=== PATIENT | female | born 1965 | race Caucasian/White ===

== ENCOUNTER → 2019-11-27 11:22 | Outpatient (CLI) | payer OTHER, SELFPAY ==
[2019-11-27 12:12] LABS: Eosinophils % 0.8 % (0.1-12.0); Hematocrit 40.5 % (37.0-47.0); Hemoglobin 13.1 g/dL (12.2-16.2); Lymphocytes # 1.2 K/mm3 (0.7-4.5); Lymphocytes % 27.4 % (10-50); Mean Corpuscular HGB Conc 32.3 g/dL (31.8-35.4); Mean Corpuscular Hemoglobin 30.4 pg (27.0-31.2); Mean Corpuscular Volume 94.2 fl (81-99); Mean Platelet Volume 7.6 fl (7.4-10.4); Monocytes # 0.2 K/mm3 (0.1-1.0); Monocytes % 4.3 % (1.7-9.3); Neutrophils % 66.5 % (37.0-80.0); Platelet Count 323 K/mm3 (142-424); Red Cell Distribution Width 13.1 % (11.5-17.5); White Blood Count 4.5 K/mm3 (4.8-10.8)
[2019-11-27 13:02] LABS: Hemoglobin A1C 5.5 % (0.0-7.0)
[2019-11-27 14:24] LABS: Alanine Aminotransferase 16 U/L (12-78); Albumin Level 3.7 gm/dL (3.4-5.0); Albumin/Globulin Ratio 1.4 (1.1-1.8); Alkaline Phosphatase 70 U/L (46-116); Anion Gap 12.5 mEq/L (5-15); Aspartate Amino Transferase 16 U/L (15-37); Bilirubin,Total 0.3 mg/dL (0.2-1.0); Blood Urea Nitrogen 18 mg/dL (7-18); Calcium 8.9 mg/dL (8.5-10.1); Carbon Dioxide 29 mmol/L (21.0-32.0); Chloride 110 mmol/L (98-107); Chol/HDL Ratio 3.2 (1-3.5); Cholesterol 221 mg/dL (140-200); Creatinine,Serum 0.74 mg/dL (0.55-1.02); Estimated Glomerular Filt Rate 82 ml/min (>60); GFR (African American) 99 ML/MIN (>60); Globulin 2.6 gm/dl (1.3-3.2); Glucose 101 mg/dL (74-106); HDL Cholesterol 70 mg/dL (29-89); LDL Cholesterol 146 mg/dL (0-130); Potassium 4.5 mmoL/L (3.5-5.1); Sodium 147 mmol/L (136-145); Thyroid Stimulating Hormone 1.01 uIU/ml (0.358-3.740); Total Protein,Serum 6.3 gm/dL (6.4-8.2); Triglycerides 23 mg/dL (30-200); VLDL Cholesterol 5 mg/dL (0-40)
[2019-11-29 16:58] LABS: FSH 133.9 mIU/mL (.); Vitamin B12 1036 pg/mL (232-1245)
[2019-11-29 17:00] LABS: Insulin Level Total 6.4 uIU/mL (2.6-24.9); Vitamin D 25 Hydroxy 70.8 ng/mL (30.0-100.0)
== END ==
PROVIDERS: Visit Provider Obstetrics & Gynecology Gynecology
DX: Z00.00 Encounter for general adult medical examination without abnormal findings (principal); R53.82 Chronic fatigue, unspecified
CPT/HCPCS: 36415; 80053; 80061; 82607; 82652; 83001; 83036; 83525; 84443; 85025

== ENCOUNTER 2025-09-19 10:53 | Day surgery (SDC) | payer OTHER, SELFPAY ==
--- NOTE | 2025-09-13 16:40 | EXP.HP ---
History of Present Illness *Admission Date: 09/19/25 *History of present illness: is a 59-year-old female who is here for screening colonoscopy. The patient reports a family history of colon cancer. The examination is deemed medically necessary for screening colonoscopy. The patient has been seen, interviewed and examined prior to the procedure by both myself and the anesthesia provider. [facility] Disclaimer: The information contained in this section may have been updated after the patient was seen, as this information can be updated by other users. Medical History Hormone replacement therapy ADHD Anxiety and depression Surgical History History of partial hysterectomy Family History Other Family history of cancer Social History (Updated 09/19/25 @ 12:03 by Lauren Park CRNA) Smoking Status: Never smoker alcohol intake: never substance use type: unknown current occupational status: employed Travel in the last 8 weeks?: None caffeine: Yes Have you lived/traveled outside [place] in past 30 days?: No Contact w/someone who lives/traveled outside [place] past 30 days?: No Exposure to someone with infectious disease in past 14 days?: No Do you have a fever (greater than 100.4 F or 38 C)?: No Have you tested positive for COVID-19?: No Exposed to someone with COVID-19 in past 14 days?: No Do you have a sore throat?: No Do you have a cough?: No Do you have any weakness?: No Do you have any diarrhea?: No Are you experiencing any unusual bleeding?: No Do you have any muscle aches/pain?: No Do you have any abdominal pain?: No Are you experiencing loss of taste or smell?: No Other Medical History Have you received the Pneumonia Vaccine: No Review of Systems Review of Systems Review of systems (narrative): Negative *Cardiovascular Comments: Negative *Gastrointestinal Comments: Negative *Genitourinary Comments: Negative *Musculoskeletal Comments: Negative *Neurologic Comments: Negative Meds Home Medications and Allergies Home Medications ?Medication ?Instructions ?Recorded ?Confirmed ?Type bupropion HCl 150 mg tablet,12 hr 150 mg PO DAILY 10/10/19 09/19/25 History sustained-release (Wellbutrin SR) clonazepam 0.5 mg tablet 0.5 mg PO DAILY PRN Anxiety 04/25/24 09/19/25 History dextroamphetamine-amphetamine 20 20 mg PO NEEDED PRN ADHD 04/25/24 09/19/25 History mg tablet estradiol 0.5 mg tablet 0.5 mg PO DAILY 04/25/24 09/19/25 History methylprednisolone 4 mg tablets in 4 mg PO DAILY #21 tabs 04/25/24 09/19/25 Rx a dose pack (Medrol (Chidi)) venlafaxine 150 mg 150 mg PO DAILY 04/25/24 09/19/25 History capsule,extended release 24 hr sodium,potassium,mag sulfates 17.5 See Rx Instructions PO .COMPLEX 09/06/25 09/19/25 Rx gram-3.13 gram-1.6 gram oral soln #354 mL (Suprep Bowel Prep Kit) venlafaxine 37.5 mg tablet 37.5 mg PO DAILY 09/17/25 09/19/25 History New Prescriptions to Start Prescriptions: Allergies Allergy/AdvReac Type Severity Reaction Status Date / Time No Known Allergies Allergy Verified 09/19/25 11:10 Exam *Routine HEENT Exam Head: Present normocephalic Eye: Present EOMI and PERRL ENT: Present mucous membranes moist *Routine Neck Exam Neck: Present supple *Routine Respiratory Exam Respiratory: Present CTA bilaterally *Routine Cardiovascular Exam Cardiovascular: Present RRR *Routine Abdominal Exam Abdominal: Present soft and normoactive bowel sounds; Absent tenderness *Routine Rectal Exam Rectal:: deferred *Routine Genitalia Exam Genitalia:: deferred *Routine Extremities Exam Extremities: Absent cyanosis, clubbing or edema *Routine Skin Exam Skin: Present warm; Absent rash *Routine Neurological Exam Neurological: Present alert and oriented X3 Assessment and Plan *Assessment and plan (1) Screening for colon cancer: Status: Acute Category: Medical Code(s): Z12.11 - Encounter for screening for malignant neoplasm of colon (2) Family history of colon cancer: Status: Acute Category: Medical Code(s): Z80.0 - Family history of malignant neoplasm of digestive organs Plan A/P: 1. Screening for colon cancer with family history of colon cancer is the preprocedural diagnosis. The patient will be anesthetized/sedated using MAC sedation. The patient has been seen and examined. Cardiac and lung assessment prior to the examination is stable. Proceed with planned screening colonoscopy.
[2025-09-17 15:29] VITALS: BMI 24.2
--- NOTE | 2025-09-19 07:01 | P.PCN_ITS ---
[facility] Procedure Note Date: 09/19/25 Time: 12:50 Procedure Note:: Colonoscopy Procedure Report: Colonoscopy with cold snare polypectomy Endoscopist: Damion Muir II, MD Referring physician: KATE Reyes Date of Procedure: September 19, 2025 Equipment: Olympus [id number] adult colonoscope Sedation: MAC sedation Indication: is a 59-year-old female who is here for screening/surveillance colonoscopy. The patient's last colonoscopy was with [facility] in [place] more than 5 years ago. The patient reports a family history of colon cancer. The patient's mother had colon cancer around the age of 80 and her grandmother had colorectal cancer in her mid 60s. The patient does have some chronic constipation. She reports no abdominal pain, weight loss, change in her bowel habits or rectal bleeding. The examination is deemed medically necessary for screening colonoscopy. Procedure: Prior to the procedure, a history and physical exam was performed, and patient's medications and allergies were reviewed. The risks, benefits and alternatives of the sedation and procedure were discussed with the patient. All questions were answered and informed consent was obtained. The patient was brought to the procedure room. Patient identification and proposed procedure were verified by the physician and the nurse. The patient was placed in a left lateral decubitus position and the scope was passed under direct vision. Throughout the procedure, the patient's blood pressure, pulse, and oxygen saturations were monitored continuously. The colonoscopy was accomplished without difficulty. The patient tolerated the procedure well. Findings: On digital rectal examination there was normal rectal tone. There were no external hemorrhoids. The colonoscope was introduced through the anal canal to the rectum and advanced to the cecum. The ileocecal valve and appendiceal orifice were identified. The scope was advanced a short distance into the ileum which appeared grossly normal. The scope was then withdrawn into the colon. The cecum, ascending, transverse, descending and sigmoid colon were normal. There were 2 diminutive polyps in the rectosigmoid (3 and 4 mm) which were both removed via cold snare polypectomy. The rectum was normal. Upon retroflexion within the rectum there were grade 1-2 internal hemorrhoids. The preparation was excellent throughout with [place] Preparation Score of 9. The cecal time was 12 minutes. Impression: 1. Diminutive rectosigmoid polyps x 2 Plan: I will follow-up the polyp histology and recommend repeat screening/surveillance colonoscopy again in 5 years.
[2025-09-19 11:12] VITALS: BP 121/71; PULSE 91; RESP 17; TEMP 36.6; O2SAT 100
[2025-09-19] MEDS: LACTATED RINGERS 1000ML 1,000 ML 50 ML IV (11:20)
--- NOTE | 2025-09-19 12:02 | EXP.ANES.CKL ---
[facility] Disclaimer: The information contained in this section may have been updated after the patient was seen, as this information can be updated by other users. Medical History Hormone replacement therapy ADHD Anxiety and depression Surgical History History of partial hysterectomy Family History Other Family history of cancer Social History Smoking Status: Never smoker alcohol intake: never substance use type: unknown current occupational status: employed Travel in the last 8 weeks?: None caffeine: Yes [facility] Anesthesia Checklist Patient Identification Patient Identification: Arm Band and Verbal (Name & ) Structural Data Admitted From: Home Planned Operative Procedure/s: colonscopy Consent for Planned Operative Procedure(s) Verified: Yes Verified Documents: Surgical Consent and History and Physical NPO Status Verified Time NPO: 00:00 Additional verifications Anesthesia Reactions: No Previous Colonoscopy: Yes Airway Assessment Mallampati Score:: Class II Dentition: Good Dentition Neurological Assessment Level of Consciousness: Awake, Alert and Appropriate Hx Seizures: No Numbness or tingling in extremities: No Anesthesia Plan Anesthesia Risk discussed: Yes Anesthesia Plan: Verified ASA Class: I Anesthesia Type: MAC
[2025-09-19 12:52] VITALS: BP 99/65; PULSE 81; RESP 18; TEMP 36.1; O2SAT 96
[2025-09-19 13:07] VITALS: BP 101/62; PULSE 74; RESP 18; TEMP 36.1; O2SAT 97
[2025-09-19 13:22] VITALS: BP 110/74; PULSE 71; RESP 18; TEMP 36.1; O2SAT 98
== END 2025-09-19 13:40 | disposition home or self-care (01) ==
PROVIDERS: PCP Nurse Practitioner Family; Visit Provider Internal Medicine Gastroenterology
PROC: 0DJD8ZZ Inspection of Lower Intestinal Tract, Via Natural or Artificial Opening Endoscopic (ICD-10-PCS; CPT 45378; principal; 2025-09-19 12:30)
DX: Z12.11 Encounter for screening for malignant neoplasm of colon (principal); D12.7 Benign neoplasm of rectosigmoid junction; Z80.0 Family history of malignant neoplasm of digestive organs; K59.09 Other constipation; K64.1 Second degree hemorrhoids
CPT/HCPCS: 45385; J2003; J2704; J7120